=== PATIENT | male | born 1995 | race African-American/Black ===

== ENCOUNTER 2021-10-17 20:24 | Emergency (ER) | payer MEDICAID ==
[~2021-10-17] VITALS: Ht 185.4 cm; Wt 175.0 kg
[2021-10-18] MEDS ORDERED: CEPH-510 PO (02:56)
[2021-10-18 03:15] VITALS: BP 127/71
[2021-10-18] MEDS: KETOROLAC TROMETH 60MG/2ML VIAL IM ONE (03:15)
== END 2021-10-18 03:20 | disposition home or self-care (01) ==
LOC: ER 20:30
DX: L03.113 Cellulitis of right upper limb (principal); S50.861A Insect bite (nonvenomous) of right forearm, initial encounter; W57.XXXA Bitten or stung by nonvenomous insect and other nonvenomous arthropods, initial encounter; Y93.89 Activity, other specified; Y92.89 Other specified places as the place of occurrence of the external cause; Y99.8 Other external cause status
CPT/HCPCS: 96372; 99283; J1885